=== PATIENT | female | born 1985 | race Hispanic/Latino ===

== ENCOUNTER 2017-10-31 16:08 | Emergency (ER) | payer OTHER ==
[~2017-10-31] VITALS: Ht 152.4 cm; Wt 59.9 kg
[~2017-10-31 16:08] MED LIST: ACET-685 PO; CLIN300C3 PO; HYDR-3101 PO; ONDA4TAB7 PO; PNV1TABL4 PO; PROM25TA10 PO; SULF1TAB24 PO; TRAM50TA PO
[2017-10-31 16:17] VITALS: BP 127/80
--- NOTE | 2017-10-31 16:45 | ER.PDOC ---
General Chief Complaint: Toothache Stated Complaint: TOOTHACHE Time seen by MD: 17:00 Source: patient Exam Limitations: no limitations History of Present Illness Timing/Duration: yesterday Context: fractured tooth Associated Symptoms: toothache, facial pain, jaw pain (R) Severity: moderate Worsen By: nothing Prior symptoms/Treatment: Similar symptoms previous Allergies: Coded Allergies: No Known Allergies (Unverified , 01/20/14) Home Meds Active Scripts Acetaminophen With Codeine (TYLENOL WITH CODEINE #3 TABLET) 1 Each Tablet, 1 TAB PO Q6 PRN for PAIN, #10 TAB 0 Refills Prov:TONE BOWERS III DO 09/15/15 Sulfamethoxazole/Trimethoprim (BACTRIM DS TABLET) 1 Each Tablet, 1 TAB PO BID, # 40 TAB Prov:TONE BOWERS III DO 09/15/15 Past Medical History Medical History: no pertinent history Surgical History: no surgical history LMP (females 10-50): 1 month Family History Significant Family History: no pertinent family hx Social History Smoking: less than 1 pack/day Alcohol Use: occassionally Drug Use: none Reviewed Nursing Reviewed: Vital Signs, Abn. Noted All Other Systems: Reviewed and Negative Physical Exam General Appearance: alert, no distress Head/Neck: (R) maxillary swelling Eyes: eyes nml inspection, PERRL, no nystagmus Mouth: dental tenderness, gum swelling Throat: pharynx nml, voice nml, no airway problems Ears/Nose: nml inspection 1 - FRACTURED TOOTH Respiratory: no resp. distress, lungs clear CVS: reg. rate & rhythm, heart sounds nml Abdomen: non-tender, no organomegaly Extremities: non-tender, ROM nml Skin Exam: Normal Color, Warm/Dry NEURO/PSYCH: oriented X3, mood/effect nml Departure Time of Disposition: 17:00 Disposition: 01 HOME, SELF-CARE Impression: Primary Impression: Abscess of maxilla Condition: Stable Referrals: PCP,UNKNOWN (PCP) PRIMARY CARE PROVIDER Duration or Time Spent with Pa: 30 MIN LILIA CARROLL MD Oct 31, 2017 16:45
[2017-10-31 16:57] VITALS: BP 127/80
== END 2017-10-31 16:52 | disposition home or self-care (01) ==
LOC: ER 16:08
DX: K04.7 Periapical abscess without sinus (principal); F17.210 Nicotine dependence, cigarettes, uncomplicated; Z79.891 Long term (current) use of opiate analgesic; Z79.2 Long term (current) use of antibiotics
CPT/HCPCS: 99283